=== PATIENT | female | born 1965 | race Caucasian/White ===

== ENCOUNTER 2017-09-15 14:51 | Emergency (ER) | payer OTHER ==
[~2017-09-15] VITALS: Ht 160 cm; Wt 77.1 kg
[2017-09-15 15:12] VITALS: Ht 160 cm; Wt 77.1 kg
[2017-09-15 19:11] VITALS: BP 121/74
== END 2017-09-15 19:11 | disposition home or self-care (01) ==
LOC: ED 14:51
DX: S06.0X0A Concussion without loss of consciousness, initial encounter (principal); J45.909 Unspecified asthma, uncomplicated; W17.89XA Other fall from one level to another, initial encounter; Y93.01 Activity, walking, marching and hiking; Y92.89 Other specified places as the place of occurrence of the external cause; Y99.8 Other external cause status